=== PATIENT | male | born 1955 | race Caucasian/White ===

== ENCOUNTER → 2023-06-04 15:34 | Outpatient (REF) | payer MEDICARE, SELFPAY | LOC: HWRAD 15:34 | PROVIDERS: ATTENDING PHYSICIAN Internal Medicine Critical Care Medicine; FAMILY PHYSICIAN Family Medicine | DX: R06.09 Other forms of dyspnea (principal); Z87.01 Personal history of pneumonia (recurrent); R93.89 Abnormal findings on diagnostic imaging of other specified body structures | CPT/HCPCS: 71250 ==